=== PATIENT | male | born 1955 | race Hispanic/Latino ===

== ENCOUNTER → 2020-03-21 | Outpatient (CLI) | payer OTHER ==
--- NOTE | 2020-03-21 16:47 | Diagnostic Imaging Report ---
TECHNIQUE: Magnetic resonance imaging of the RIGHT SHOULDER was performed WITHOUT injected contrast. COMPARISON: None available. HISTORY: Right shoulder pain; unspecified injury of other muscles, fascia, and tendons at shoulder and upper arm FINDINGS: MUSCLES AND TENDONS: Rotator Cuff: Tendons: Supraspinatus: Full-thickness near full width tear of the supraspinatus tendon measuring up to 1.7 cm in AP dimension with retraction of torn fibers to the medial humeral head. Posterior fibers are partially intact with high-grade partial-thickness articular sided tearing. Infraspinatus: Tendinosis with propagation of low-grade partial-thickness articular sided tearing along the anterior fibers. Teres Minor: Intact Subscapularis: High-grade partial-thickness articular sided tearing. Muscles: Mild fatty atrophy, most notably in the infraspinatus and teres minor muscles. Biceps Tendon: The long head of the biceps tendon is partially subluxed and perched along the medial aspect of the bicipital groove. Associated tendinosis with questionable focal split tear. GLENOHUMERAL JOINT: Glenoid Labrum: Posterior superior labral tear. Additional fraying and irregularity of the superior labrum without discrete displaced tear. Small joint effusion with fluid extending into the subacromial/subdeltoid bursa. Articular Cartilage: Humeral head is superiorly subluxed in relation to the glenoid with narrowing of the supraspinatus tendon outlet. Superficial fraying along the articular cartilage at the superior glenoid and inferior humeral head without focal defect. AC JOINT AND ACROMION: Mild hypertrophic degenerative changes of the acromioclavicular joint. Incidentally noted os acromiale with subchondral cystic changes versus intraosseous ganglion cyst at the [place] acromion. Mild subacromial osseous spurring. Fluid in the subacromial/subdeltoid bursa, likely related to full-thickness rotator cuff tear. BONE: No fractures or acute osseous abnormalities. Subchondral reactive cystic changes at the greater tuberosity. SOFT TISSUES: Otherwise, the soft tissues appear unremarkable. IMPRESSION: 1. Full-thickness near full width tear of the supraspinatus tendon with high-grade partial-thickness articular sided tearing along few intact posterior fibers. Posterior propagation of low-grade articular sided tearing into the anterior aspect of infraspinatus tendon. 2. Additional high-grade partial-thickness articular sided tearing of the subscapularis tendon. 3. Long head of the biceps tendon is partially subluxed and perched along the medial bicipital groove. Associated biceps tendinosis with questionable focal split tear. 4. Posterosuperior labral tear. Additional fraying and irregularity of the superior labrum without discrete displaced tear. 5. Superior subluxation of the humeral head in relation to the glenoid and incidentally noted os acromiale results in narrowing of the supraspinatus tendon outlet. Signed by: Dr. Mohan Carrasco M.D. on 03/21/2020 4:43 PM
== END ==
LOC: MRI 15:01
PROVIDERS: ATTEND Family Medicine
DX: S46.801A Unspecified injury of other muscles, fascia and tendons at shoulder and upper arm level, right arm, initial encounter (principal)